=== PATIENT | female | born 1950 | race Caucasian/White ===

== ENCOUNTER 2023-12-10 05:25 | Inpatient (IN) | payer MEDICARE, OTHER, SELFPAY ==
[2023-12-10] VITALS (37 sets, daily range): BP systolic 99–155; BP diastolic 60–96; BMI 23.0
[2023-12-10] MEDS: PROTONIX IV 80 MG IV (03:06)
[2023-12-10 03:21] LABS: % Eosinophils 1.9 % (0-6); % Immature Granulocytes 0.4 % (0-0.5); % Neutrophils 50.7 % (42.2-75.2); Absolute Basophils 0.1 10^3/uL (0-0.2); Absolute Eosinophils 0.2 10^3/uL (0-0.7); Absolute Lymphocytes 3.1 10^3/uL (1.2-3.4); Absolute Monocytes 0.6 10^3/uL (0.1-0.6); Absolute Neutrophils 4.1 10^3/uL (1.4-6.5); Hematocrit 34.5 % (37.0-47.0); Hemoglobin 11.7 g/dL (12.0-16.0); Mean Corp Hgb Conc. 33.9 g/dL (33.0-37.0); Mean Corpuscular Hgb 36.2 pg (27.0-31.0); Mean Corpuscular Volume 106.8 fL (81.0-99.0); Mean Platelet Volume 10.6 fL (7.4-10.4); Nucleated Red Blood Cells % 0 %; Platelet Count 532 10^3/uL (130-400); Red Blood Cell Count 3.23 10^6/uL (4.20-5.40)
[2023-12-10 03:31] LABS: PT 13.2 Sec (11.4-14.6)
[2023-12-10 03:32] LABS: APTT 31.3 Sec (23.4-35.0)
--- NOTE | 2023-12-10 03:39 | ED.GENMED ---
History of Present Illness
General
Chief Complaint: Rectal Bleeding
Source: patient
Exam Limitations: none
Time Seen by Provider: 12/10/23 02:51
Nursing documentation reviewed up to this point in time: agreed with
Travel History
Have you had any contact with someone who has COVID-19?: No
Do you have any symptoms of coronavirus? Fever > 100 degrees, chills, cough, shortness of breath, sore throat, loss of taste or smell, muscle aches, or headache?: No
History of Present Illness
History of Present Illness:
This a pleasant 73-year-old female that presents with lower abdominal cramping. She states that this is been present for the last few days. Tonight she felt that she had to have a bowel movement in the middle of the night and went to wipe and had
a large amount of bright red blood. Patient states that she feels lightheaded and her states that she feels pale. She did have a colonoscopy on October 14 but no symptoms until tonight. Denies fever, chills, nausea and vomiting. While in
the emergency department, patient had 3 bowel movements of bright red blood.
Vital signs are stable. Patient not hypoxic
Nursing note reviewed. I agree with nursing documentation up to this point in time.
Home Meds and allergies reviewed.
NUMBER AND COMPLEXITY OF PROBLEMS ADDRESSED AT THE ENCOUNTER
� Chronic conditions affecting care: Thrombocytosis
� Acute Exacerbation and/or Progression of Chronic Illness:
� Differential Diagnosis includes:
AMOUNT AND/OR COMPLEXITY OF DATA TO BE REVIEWED AND ANALYZED
I performed an independent evaluation of the following and my interpretation is:
EKG:
CT:
X-rays:
Ultrasound:
Laboratory Studies: Initial hemoglobin is 11.7, platelet count is 532
Other:
Review of other/old records:
Clinical information was obtained by an independent historian:
Prescriptions/Medications Considered but not given:
Further testing considered but not performed:
RISK OF COMPLICATIONS AND/OR MORBIDITY OR MORTALITY OF PATIENT MANAGEMENT
Social determinants of health affecting care: Good Social Support, works as a nurse practitioner
Discussion with other providers:
Escalation of care including admission/observation vs risk of discharge considered:
CRITICAL CARE NOTE:
Total Time (exclusive of procedures):
Update:
Review of Systems
Review of Systems
Allergies reviewed?: Yes
All Other Systems: ROS reviewed and negative except as documented in HPI and ROS
Constitutional: Reports no symptoms
EENT: Reports no symptoms
Respiratory: Reports no symptoms
Cardiac: Reports no symptoms
ABD/GI: Reports abdominal pain, diarrhea and bloody stools
: Reports no symptoms
Musculoskeletal: Reports no symptoms
Skin: Reports no symptoms
Neurological: Reports no symptoms
Endocrine: Reports no symptoms
Hematologic/Lymphatic: Reports no symptoms
Psychiatric: Reports no symptoms
Phy Exam
General Physical Exam
General Presentation: mild distress
General age: appears stated age
General Skin: warm, dry and pale
General Habitus: normal
General Mental: alert
General Hydration: appears well hydrated
ENT Exam
ENT Exam: EOMI, pharynx normal, neck supple and normocephalic
Eye Exam
Eye Exam: PERRL, cornea clear and conjunctiva normal
Cardiovascular Exam
Cardiovascular Exam: no edema, normal peripheral pulses and tachycardia
Pulmonary Exam
Pulmonary Exam: lungs clear, no respiratory distress, no rales, no crackles, no rhonchi, no stridor, no wheezing and no cough
Gastrointestinal Exam
Gastrointestinal Exam: normal bowel sounds, non tender, soft, no organomegaly, no pulsatile mass and non distended
Neurological Exam
Neurological Exam: alert, oriented x3, no motor deficits and speech normal
Musculoskeletal Exam
Musculoskeletal Exam: full ROM and no edema
Skin Exam
Skin Exam: pallor
Psychiatric Exam
Psychiatric Exam: normal mood/affect
Course
Orders/Labs/Results
Orders:
Orders
12/10/23 03:04
IV Insert/Care/Rem.- Treatment PRN
Pantoprazole [Protonix IV] 80 mg IV NOW STA
12/10/23 03:06
Complete Blood Count/With Diff Urgent
Comprehensive Metabolic Panel Urgent
Lipase Urgent
PTT Urgent
Prothrombin Time Urgent
12/10/23 03:41
IV Insert/Care/Rem.- Treatment PRN
Complete Blood Count/No Diff Urgent
Pantoprazole 80 mg/100 ml Nss [Protonix] 80 mg in 100 ml IV NOW
12/10/23 03:55
Type+Screen Urgent
BBK Wristband Number:
12/10/23 04:00
0.9% Sodium Chloride 1000 ml [Nss] 1,000 ml IV 500 mls/hr
12/10/23 04:51
Admit/Transfer Patient As Directed
Co-Sign Provider:
Level of Care: Inpatient admission
Assign to:: IMU- Intermediate Care
Physician / Group: Aaron
Diagnosis: Lower GI Bleed
Reason for Hospitalization: Lower GI Bleed
Expected length of stay greater than two midnights?: Yes
ELOS- Estimated Length of Stay in days: 3
I certify the patient meets the requirements for IP care: Yes
12/10/23 04:52
Code Status As Directed
Resuscitation Status: Full Code
12/10/23 04:54
0.9% Sodium Chloride 500 ml [Nss] 500 ml IV BOLUS
Abnormal Lab Results
12/10/23 12/10/23
03:06 03:41
RBC 3.23 L 10^6/uL 3.15 L 10^6/uL
(4.20-5.40) (4.20-5.40)
Hgb 11.7 L g/dL 11.2 L g/dL
(12.0-16.0) (12.0-16.0)
Hct 34.5 L % 33.8 L %
(37.0-47.0) (37.0-47.0)
MCV 106.8 H fL 107.3 H fL
(81.0-99.0) (81.0-99.0)
MCH 36.2 H pg 35.6 H pg
(27.0-31.0) (27.0-31.0)
Plt Count 532 H 10^3/uL 461 H 10^3/uL
(130-400) (130-400)
MPV 10.6 H fL 10.5 H fL
(7.4-10.4) (7.4-10.4)
BUN 24 H mg/dl
(7-17)
Glucose 126 H mg/dl
(70-99)
Total Protein 6.1 L g/dl
(6.3-8.2)
12/10/23 03:41
12/10/23 03:06
Vital Signs
Initial and Last Documented VS:
Initial Vital Signs
Temp Pulse Resp BP Pulse Ox
97.5 F 131 21 126/78 100
12/10/23 02:45 12/10/23 02:45 12/10/23 02:45 12/10/23 02:45 12/10/23 02:45
Last Documented Vital Signs
Temp Pulse Resp BP Pulse Ox
97.5 F 93 24 107/60 96
12/10/23 02:45 12/10/23 05:15 12/10/23 05:15 12/10/23 05:00 12/10/23 05:15
*Critical Care Note
Total Time (30-74mins, 75-104mins- exclusive of procedures): Not Applicable
Update Note
Update Note:
12/10/2023 0342 AM: Blood consent signed by patient, witnessed by , and is on the chart
ED Attending Note
-
Portions of this chart may have been created with voice recognition software.� Occasional wrong word or��sound alike� substitutions may have occurred due to the inherent limitations of voice recognition software.
Discharge Plan
Departure
Patient Disposition: Admit
Date of Disposition: 12/10/23
Time of Disposition: 04:07
Admit to: Telemetry
Presentation/result/management discussed w/ accepting MD/DO: Hospitalist
Condition: Good
Discharge Problem:
Acute GI bleeding
Interventions
Interventions:
*Risk Screen - Suicide Last Done: 12/10/23 02:45
*General Assessment Last Done: 12/10/23 02:45
*Neglect/Abuse Screening Last Done: 12/10/23 02:45
ED- Fall Risk Assessment Last Done: 12/10/23 02:45
*ED COVID-19 Vaccine History Last Done: 12/10/23 02:45
FQ-Damyvh-Bihcejminq Assessment Last Done: 12/10/23 03:00
ED- Cardiac Assessment Last Done: 12/10/23 03:00
ED- Pulmonary Assessment Last Done: 12/10/23 03:00
[2023-12-10 03:44] LABS: ALT (SGPT) 16 U/L (0-35); AST (SGOT) 22 U/L (14-36); Albumin 3.5 g/dl (3.5-5.0); Alkaline Phosphatase 102 U/L (38-126); Blood Urea Nitrogen 24 mg/dl (7-17); Calcium 9.1 mg/dl (8.4-10.2); Carbon Dioxide 23 mmol/L (22-30); Chloride 105 mmol/L (98-107); Glucose 126 mg/dl (70-99); Lipase 79 U/L (23-300); Potassium 4.3 mmol/L (3.5-5.1); Sodium 136 mmol/L (135-145); Total Bilirubin 0.3 mg/dl (0.2-1.3); Total Protein 6.1 g/dl (6.3-8.2); eGFR 59.49
[2023-12-10 03:50] LABS: Hematocrit 33.8 % (37.0-47.0); Hemoglobin 11.2 g/dL (12.0-16.0); Mean Corp Hgb Conc. 33.1 g/dL (33.0-37.0); Mean Corpuscular Hgb 35.6 pg (27.0-31.0); Mean Corpuscular Volume 107.3 fL (81.0-99.0); Mean Platelet Volume 10.5 fL (7.4-10.4); Platelet Count 461 10^3/uL (130-400); Red Blood Cell Count 3.15 10^6/uL (4.20-5.40)
[2023-12-10] MEDS: PROTONIX 100 IV (03:56)
[2023-12-10] MEDS: NSS 1000 IV ×3 (04:12→23:05)
--- NOTE | 2023-12-10 04:55 | HPS.HSE ---
Family Physician
-
Family Physician: Dionte Vargas
Chief Complaint
-
Rectal Bleeding
History of Present Illness
Patient is a 73y F with PMH significant for essential thrombocytosis who presents to ED complaining of rectal bleeding. Patient states that she developed some crampy lower abdominal discomfort on Wednesday / Wednesday of this week. Her symptoms
resolved without specific intervention. She had no diarrhea, black / bloody stools, lightheadedness or dizziness. This evening before bed, she felt somewhat warm and was 'a little sweaty'. She went to sleep and woke around 2:30 AM with the urge
to move her bowels. There was some wetness in the bed and patient noted that this was red / grossly bloody. She went to the bathroom and had what she initially thought was diarrhea - this too was bright red blood with minimal amount of brown stool.
Patient presented to the ED for further evaluation. Since arrival here, she has had 3-4 additional episodes of gelatinous appearing / red stool.
Patient states that she has no chest pain, dyspnea or abdominal pain at present. She did feel somewhat lightheaded on her last trip to the bathroom.
Patient denies any prior history of GI beeding issues.
She had EGD and colonoscopy done 10/14/2023 and has those reports with her.
EGD showed small hiatal hernia and was otherwise unremarkable.
Colonoscopy showed diverticulosis (patient states that the physician told her there were quite a lot) and internal hemorrhoids.
Medical History
Past Medical History
Past Medical History: Reports Other
Additional Past Medical History:
Essential Thrombocytosis
Dyslipidemia
Hiatal Hernia / GERD
Past Surgical History: Reports None
Social History
Tobacco: Non-smoker
Alcohol: Occasional
Drug: None
Personal:
Living: With Family
Family History
Family History: Other (Father: Colon Cancer Mother: Breast Cancer)
Allergies / Home Medications
Allergies reflects when Allergies were last updated in [facility].
Home Medications with original date entered in [facility]
Allergy/Medication List:
Allergies
Allergy/AdvReac Type Severity Reaction Status Date / Time
No Known Allergies Allergy Unverified 12/10/23 02:44
Home Medications
aspirin 81 mg tablet 81 mg PO DAILY 12/10/23
hydroxyurea 500 mg capsule (Hydrea) 500 mg PO DAILY 12/10/23
omeprazole magnesium 20 mg tablet,delayed release (Prilosec OTC) 20 mg PO DAILY 12/10/23
rosuvastatin 10 mg tablet (Crestor) 10 mg PO DAILY 12/10/23
Review of Systems
-
History Source: Patient
A 12 point ROS was completed and negative except as noted: Yes
Constitutional: Reports Fatigue; Denies Fever or Chills
Respiratory: Denies Cough or Trouble Breathing
Cardiac: Denies Chest Pain or Palpitations
Abdomen/GI: Reports Bloody Stools; Denies Abdominal Pain, Nausea or Vomiting
: Denies Dysuria, Frequency or Flank Pain
Musculoskeletal: Denies Edema
Neurological: Reports Dizzy; Denies Headache
Psych: Reports Anxiety; Denies Depression
Physical Exam
Vital Signs
Vital Signs
Temp Pulse Resp BP Pulse Ox
97.5 F 91 13 99/62 99
12/10/23 02:45 12/10/23 04:30 12/10/23 04:30 12/10/23 04:01 12/10/23 04:30
Physical Exam
General: Other (73y F in no acute distress.)
HEENT: Moist mucous membranes and PERRLA
Respiratory: Clear; No Wheezes, Rales or Rhonchi
Cardiac: S1/S2 and Regular Rhythm; No Murmur
GI: Soft, Non Tender, Non Distended and Normal Bowel Sounds
Musculoskeletal: No Clubbing, No Cyanosis and No Edema
Neuro: AO x 3
Laboratory Results
-
12/10/23 03:41
12/10/23 03:06
Laboratory Results
PT 13.2 Sec (11.4-14.6) 12/10/23 03:06
INR 1.00 12/10/23 03:06
APTT 31.3 Sec (23.4-35.0) 12/10/23 03:06
Total Bilirubin 0.3 mg/dl (0.2-1.3) 12/10/23 03:06
AST 22 U/L (14-36) 12/10/23 03:06
ALT 16 U/L (0-35) 12/10/23 03:06
Alkaline Phosphatase 102 U/L (38-126) 12/10/23 03:06
Lipase 79 U/L (23-300) 12/10/23 03:06
Impression/Plan
-
A/P: Patient is a 73y F with PMH significant for essential thrombocytosis who presents to ED for evaluation of rectal bleeding.
Lower GI Bleeding
Acute Blood Loss Anemia secondary to the above
- Admit to IMU for further evaluation and treatment.
- Follow H&H and consider transfusion if Hgb < 7, worsening symptoms or ongoing blood loss.
- ? diverticular bleeding, internal hemorrhoids, etc. Colitis (infectious or ischemic) seems less likely with lack of pain, fever, etc.
- If patient has additional episodes of BRBPR, would check CTA to see if bleeding can be localized. +/- IR evaluation / intervention.
- GI evaluation in the AM.
- ? repeat colonoscopy - especially if bleeding does not fully resolve.
- Follow for any new / worsening symptoms.
- Continue supportive care, IVFs, etc.
- Hold ASA acutely.
Essential Thrombocytosis
- Stable. Platelet count typically in the mid-300's per patient.
- Hold PO meds including hydroxyurea for now.
- Follow for changes in cell counts.
Hiatal Hernia / GERD
- Stable. No upper GI symptoms, melena, etc.
- Continue PPI daily.
Dyslipidemia
- Stable. Hold statin for now. May resume upon discharge.
DVT Prophylaxis: SCDs
Code Status: Full
[2023-12-10] MEDS: NSS 500 IV (05:38)
--- NOTE | 2023-12-10 06:35 | PTCARENOTE ---
12/10/23 - received pt from ER at 0615, patient axo and very pleasant. no pain or discomfort at this time, per patient she had 5/6 loose stool in ED and does not feel the urge to go anymore at this time. patient however asked to have bedpan by bed
as she can use it herself.
patient has cell phone by her side and purse in closet, no futher needs at this tme, will review orders to see if she is NPO, protonix and NSS running.
--- NOTE | 2023-12-10 06:40 | CON.GI ---
Addendum entered and electronically signed by Jeff Grady MD 12/10/23 15:33:
I saw and examined the patient.
The PA's note was reviewed and I agree with the note.
Comment:
Pt is a 73 year old female with h/o essential thrombocytopenia on Hydrea, dyslipidemia, GERD and HH p/w hematochezia. She had crampy abdominal pain 4-5 days ago which eased but recurred after few days, followed by hematochezia. On arrival in ER
noted with multiple gelatinous stools and further bleeding with passing bright red blood during evaluation. Had EGD and colonoscopy on 10/2023, EGD showed HH and colonoscopy showed diverticulosis and internal hemorrhoids.� On admission hbg 11.7 with
macrocytosis, platelets 532, BUN 24.
Impression / Rec:
1. Abdominal cramps/pain and hematochezia - atypical. Abdo cramps followed by rectal bleeding is suggestive of ischemic colitis, however her hematochezia didn't occur for 2-3 days after her pain which makes this less likely. CTA was done which
was -ve for active bleeding (not surprising), but it also showed findings suggestive of diverticulitis in distal descending colon. ? diverticulitis with diverticular hemorrhage? Remains unclear. Would defer endo eval at this time. Can narrow
down abx to cipro/flagyl for diverticulitis. Follow Hgb.
Addendum entered and electronically signed by JACKIE Daly 12/10/23 11:07:
12/09 CTA with no active bleeding, mild acute diverticulitis, gastritis not excluded hbg 9.[address] Liang no role for angio, add abx with noted diverticulitis and for transfusion - Dr. Liang to review with patient
Original Note:
Consultation
-
Date/Time Consultation Requested: 12/10/23629
Date/Time Consultation Performed: 12/10/23814
Requesting Provider: Jama Walker DO
Performing Provider: JACKIE Short, Jeff Grady MD
Reason for Consultation: GI bleed
Medical History
Chief Complaint / HPI
Chief Complaint: rectal bleeding
History of Present Illness:
Pt is 73yo with hx essential thrombocytopenia on hydrea , dyslipidemia, GERD and HH with onset of crampy abdominal pain on Wednesday and Wednesday then resolved. She developed sweaty prior to bed 12/08 then awoke with urge for BM with noted red blood in
bed. On arrival in Er noted with multiple gelatinous stools and further bleeding with passing bright red blood during evaluation. Hx EGD and colon 10/2023 with EGD noted HH and colon with diverticulosis and internal hemorrhoids. On admission hbg
11.7 with macrocytosis, platelets 532, BUN 24.
Pt denies dysphagia, GERD, nausea, vomiting, abdominal pain, diarrhea, constipation or black stools. On daily ASA no other anticoagulation or NSAID use.
Past Medical History
Past Medical History: GERD, Hypercholesterolemia and Other (essential thrombocytosis, Hiatal hernia)
Social History
Tobacco: Non-Smoker
Alcohol: Occasional (social )
Drug: None
Personal:
Living: With Family
Employment: Retired
Family History
Family History: Other (father with colon CA, mother with breast CA)
Allergies / Home Medications
Allergy/AdvReac Type Severity Reaction Status Date / Time
No Known Allergies Allergy Unverified 12/10/23 02:44
Medication Instructions Recorded
aspirin 81 mg tablet 81 mg PO DAILY 12/10/23
hydroxyurea 500 mg capsule (Hydrea) 500 mg PO DAILY 12/10/23
omeprazole magnesium 20 mg 20 mg PO DAILY 12/10/23
tablet,delayed release (Prilosec
OTC)
rosuvastatin 10 mg tablet (Crestor) 10 mg PO DAILY 12/10/23
Review of Systems
-
History Source: Patient
Constitutional: Reports No Symptoms
EENT: Reports No Symptoms
Respiratory: Reports No Symptoms
Cardiac: Reports No Symptoms
Abdomen/GI: Reports Abdominal Pain (several days ago no resolved ) and Bloody Stools
: Reports No Symptoms
Musculoskeletal: Reports No Symptoms
Skin: Reports No Symptoms
Neurological: Reports Weakness
Endocrine: Reports No Symptoms
Hematologic/Lymphatic: Reports Bleeding
Vital Signs
Temp Pulse Resp BP Pulse Ox
97.5 F 93 24 107/60 96
12/10/23 02:45 12/10/23 05:15 12/10/23 05:15 12/10/23 05:00 12/10/23 05:15
Physical Exam
Exam
General: Well Developed, Well Nourished and No Apparent Distress
HEENT: Normocephalic and Anicteric
Respiratory: Clear
Cardiac: Regular Rhythm
GI: Soft, Non Tender and Non Distended
Rectal: Red (red blood in toilet with recent stool)
Musculoskeletal: No Clubbing and No Cyanosis
Skin: Warm and Dry
Neuro: Awake, Alert and AO x 3
Psych: Calm
Results
WBC 7.0 10^3/uL (4.8-10.8) 12/10/23 03:41
Hgb 11.2 g/dL (12.0-16.0) L 12/10/23 03:41
Hct 33.8 % (37.0-47.0) L 12/10/23 03:41
MCV 107.3 fL (81.0-99.0) H 12/10/23 03:41
Plt Count 461 10^3/uL (130-400) H 12/10/23 03:41
Absolute Neuts (auto) 4.1 10^3/uL (1.4-6.5) 12/10/23 03:06
PT 13.2 Sec (11.4-14.6) 12/10/23 03:06
INR 1.00 12/10/23 03:06
APTT 31.3 Sec (23.4-35.0) 12/10/23 03:06
Sodium 136 mmol/L (135-145) 12/10/23 03:06
Potassium 4.3 mmol/L (3.5-5.1) 12/10/23 03:06
Chloride 105 mmol/L (98-107) 12/10/23 03:06
Carbon Dioxide 23 mmol/L (22-30) 12/10/23 03:06
BUN 24 mg/dl (7-17) H 12/10/23 03:06
Creatinine 1.0 mg/dL (0.6-1.0) 12/10/23 03:06
Calcium 9.1 mg/dl (8.4-10.2) 12/10/23 03:06
Total Bilirubin 0.3 mg/dl (0.2-1.3) 12/10/23 03:06
AST 22 U/L (14-36) 12/10/23 03:06
ALT 16 U/L (0-35) 12/10/23 03:06
Alkaline Phosphatase 102 U/L (38-126) 12/10/23 03:06
Lipase 79 U/L (23-300) 12/10/23 03:06
Diagnostic Image Results:
12/09 CTA pending
Prior GI Procedures:
EGD: [facility] 10/14/23 noted HH normal stomach and duodenum no bx
Colonoscopy: [facility] 10/14/23 colon with diverticulosis descending and sigmoid , internal hemorrhoids.
Assessment / Plan
-
Pt is 73yo with hx essential thrombocytopenia on Hydrea , dyslipidemia, GERD and HH with onset of crampy abdominal pain on Wednesday and Wednesday then resolved. She developed sweaty prior to bed 12/08 then awoke with urge for BM with noted red blood in
bed. On arrival in Er noted with multiple gelatinous stools and further bleeding with passing bright red blood during evaluation. Hx EGD and colon 10/2023 with EGD noted HH and colon with diverticulosis and internal hemorrhoids. On admission hbg
11.7 with macrocytosis, platelets 532, BUN 24.
-lower GI bleed likely diverticular bleed
-hx diverticulosis on recent colonoscopy
-anemia acute blood loss
-thrombocytosis stable on chronic Hydrea
-HH
- hx GERD stable on OP Omeprazole OTC
-dyslipidemia
PLAN:Etiology of symptoms related to diverticular bleeding, vs less likely ischemic process with some hypotension on admission vs other
pt just passed another large volume stools will proceed with CTA if + then angio
if persistent bleeding and CTA neg consider colonoscopy
trend hbg and platelets with thrombocytosis
maintain adequate perfusion
NPO ok for sips and meds
cont Protonix 40mg IV daily
recent EGD/colon reviewed
discussed with Dr. Liang, and nursing staff
will follow
-
-
Thank you for consultation and allowing me to participate in the patient's care. Please call the production line mechanic GI physician during the after hours with any questions or concerns.
--- NOTE | 2023-12-10 07:49 | W.PN.HOSP.TC ---
Addendum entered and electronically signed by Anastasia Liang MD 12/10/23 12:58:
Pt's Hgb noted to have dropped from 11 to 9.3, likely due to GIB and hemodilution from IVF.
She would like to continue to monitor Hgb for now before receiving blood transfusion.
Noted iron deficiency, and low B12 level.
Pt prefers to hold off on iron supplement due to her h/o thrombocytosis.
Start B12 supplement.
Her CT AP Angio (obtained due to recurrent GI bleed) was negative for acute GI bleed. But noted mild acute diverticulitis of the distal descending colon.
She was started with empiric Zosyn for this.
Add probiotic while on Abx.
d/w at bedside
total time spent 53 min
Original Note:
Today's Communication/Plan
-
see A/P
Assessment / Plan
Assessment / Plan
Patient is a 73y F with PMH significant for essential thrombocytosis who presents to ED complaining of rectal bleeding.� Patient states that she developed some crampy lower abdominal discomfort on Wednesday / Wednesday of this week.� Her symptoms
resolved without specific intervention.� She had no diarrhea, black / bloody stools, lightheadedness or dizziness.� This evening before bed, she felt somewhat warm and was 'a little sweaty'.� She went to sleep and woke around 2:30 AM with the urge
to move her bowels.� There was some wetness in the bed and patient noted that this was red / grossly bloody.� She went to the bathroom and had what she initially thought was diarrhea - this too was bright red blood with minimal amount of brown stool.
Patient presented to the ED for further evaluation.� Since arrival here, she has had 3-4 additional episodes of gelatinous appearing / red stool.
Patient states that she has no chest pain, dyspnea or abdominal pain at present.� She did feel somewhat lightheaded on her last trip to the bathroom.
Patient denies any prior history of GI beeding issues.
She had EGD and colonoscopy done 10/14/2023 and has those reports with her.
EGD showed small hiatal hernia and was otherwise unremarkable.
Colonoscopy showed diverticulosis (patient states that the physician told her there were quite a lot) and internal hemorrhoids.
A/P:
# BRBPR / Lower GI Bleeding, suspect diverticular bleed
# Acute Blood Loss Anemia secondary to the above
Follow H&H and consider transfusion if Hgb < 7, worsening symptoms or ongoing blood loss.
Check iron studies, B12, folate levels
Recent C scope noted diverticulosis and internal hemorrhoids.
Monitor for further GIB, consider CTA of bleeding recurs
GI CS, defer ?repeat colonoscopy to GI
Continue supportive care, IVFs, etc.
# Essential Thrombocytosis- Stable.�
Platelet count typically in the mid-300's per patient.
Hold hydroxyurea for now.
Resume ASA (pt takes ASA for Thrombocytosis)
Follow for changes in cell counts.
# Hiatal Hernia / GERD�- Stable.�
No upper GI symptoms, melena, etc.
Continue PPI daily.
# Dyslipidemia�- Stable.�
Hold statin for now.� May resume upon discharge.
DVT Prophylaxis:� SCDs
Code Status:� Full
DW pt's PCP Dr Lux Vargas [phone]
DW GI
Anticipated Discharge: 24 - 48 hours
Subjective/Interval History
-
Date of Service: December 10, 2023
Objective Data
-
Labs:
Laboratory Results
12/10/23 12/10/23 12/10/23
03:06 03:41 06:30
WBC 8.0 7.0
Hgb 11.7 L 11.2 L Pending
Hct 34.5 L 33.8 L Pending
Plt Count 532 H 461 H
PT 13.2
INR 1.00
APTT 31.3
Sodium 136
Potassium 4.3
Chloride 105
Carbon Dioxide 23
BUN 24 H
Creatinine 1.0
Glucose 126 H
Calcium 9.1
Total Bilirubin 0.3
AST 22
ALT 16
Alkaline Phosphatase 102
12/10/23 12/10/23
12:30 18:30
WBC
Hgb Pending Pending
Hct Pending Pending
Plt Count
PT
INR
APTT
Sodium
Potassium
Chloride
Carbon Dioxide
BUN
Creatinine
Glucose
Calcium
Total Bilirubin
AST
ALT
Alkaline Phosphatase
Vital Signs:
Vital Signs
Temp Pulse Resp BP Pulse Ox
36.4 C 93 24 107/60 96
12/10/23 02:45 12/10/23 05:15 12/10/23 05:15 12/10/23 05:00 12/10/23 05:15
Review of Systems
-
Abdomen/GI: Reports Bloody Stools; Denies Abdominal Pain
Physical Exam
-
General: Well Developed, Well Nourished, No Apparent Distress, Comfortable and Conversant; Negative Respiratory Distress
HEENT: Normocephalic, Atraumatic, Nose Appears Normal and Ears Appear Normal; Negative Oxygen
Respiratory: Clear to Auscultation and Non Labored Respirations; Negative Accessory Resp Muscle Use
Cardiac: Regular Rhythm and S1/S2
GI: Soft, Nontender, Nondistended and Normal Bowel Sounds
Skin: Warm and Dry
Neuro: Awake, Alert, Oriented and AO x 3
Psych: Calm and Intact Judgement/Insight
Data Reviewed
-
Labs: Labs Reviewed by me
[2023-12-10] MEDS: NSS IV ×3 (09:10→11:22)
[2023-12-10 09:20] LABS: Ferritin 50.1 ng/ml (11.1-264.0)
[2023-12-10 09:28] LABS: Hematocrit 27.3 % (37.0-47.0); Hemoglobin 9.3 g/dL (12.0-16.0)
[2023-12-10 09:42] LABS: Iron 41 ug/dl (37-170)
[2023-12-10 09:52] LABS: Folate 4.8 ng/ml (2.76-20); Vitamin B12 353 pg/ml (239-931)
[2023-12-10 09:52] LABS: Percent Saturation 14 % (20-50); Total Iron Binding Capacity 276 ug/dl (265-497)
[2023-12-10] MEDS: ZOSYN 50 IV ×2 (11:27→18:12)
[2023-12-10 13:55] LABS: Hematocrit 25.1 % (37.0-47.0); Hemoglobin 8.5 g/dL (12.0-16.0)
--- NOTE | 2023-12-10 13:58 | CM ---
CM following re: discharge planning.
Discussed in rounds, reviewed pt's chart, met with pt.
Pt is a 73 year old female, admitted with primary dx of BRBPR / Lower GI Bleeding.
Pt reports she lives in a condo, 3d floor with elevator, no steps, has 2 supportive children. Pt described herself as independent in all areas [employer]. No DME, VN or SNF history.
PCP: Dionte mccann
Ph[facility]: [facility]
D/C plan: home with anticipated no needs. to transport at discharge.
CM will follow with discharge plan updates as hospitalization progresses
[2023-12-10] MEDS: HYDREA 500 MG PO (14:08)
[2023-12-10] MEDS: VISBIOME 1 CAP PO (14:08)
[2023-12-10] MEDS: VITAMIN B-12 1000 MCG PO (14:08)
[2023-12-10 18:29] LABS: Hematocrit 22.6 % (37.0-47.0); Hemoglobin 7.5 g/dL (12.0-16.0)
--- NOTE | 2023-12-10 19:40 | PTCARENOTE ---
Report received from off going RN. Patient received in bed, AAOx4 and able to make her needs known. denies pain. Complains of a mild headache. Plan of care for the shift reviewed with the patient. Blood transfusion protocol reviewed with the
patient. Pt states that she's never received a blood transfusion. Possible blood transfusion reactions reviewed with the patient. Questions encouraged. The patient is sinus rhythm on the monitor. Afebrile. Clear breath sounds throughout. SpO2 at 95%
on room air. +BS. Abdomen is soft and nontender. Patient encouraged to utilize the call callahan prior to getting OOB. PIV. Zosyn is ongoing. Normal saline at 100 ml/hr. Need for SCDs explained to the patient. Pt's agreeable to scds when she's ready for
bed. All needs met at this time.
--- NOTE | 2023-12-10 21:05 | PTCARENOTE ---
2058: 1 unit PrBC infusion
[2023-12-10] MEDS: TYLENOL 650 MG PO (21:20)
[2023-12-10] MEDS: ASPIR LOW (ENTERIC COATED) 81 MG PO (21:21)
[2023-12-10] MEDS: CRESTOR 10 MG PO (21:21)
--- NOTE | 2023-12-10 23:07 | PTCARENOTE ---
2303: 1 unit Prbc completed
[2023-12-11] VITALS (11 sets, daily range): BP systolic 86–136; BP diastolic 44–92; BMI 22.9
[2023-12-11] MEDS: ZOSYN 50 IV ×2 (00:02→05:39)
--- NOTE | 2023-12-11 00:25 | PTCARENOTE ---
Patient reassessed. AAOx4 and able to make her needs known. Remains VSS. Discussed SCD use with the patient. Pt's agreeable post zosyn administration. No changes from previous assessment.
[2023-12-11 00:54] LABS: Hematocrit 28.3 % (37.0-47.0)
[2023-12-11 00:58] LABS: Hemoglobin 9.6 g/dL (12.0-16.0)
[2023-12-11 04:09] LABS: Hematocrit 28.8 % (37.0-47.0); Hemoglobin 9.8 g/dL (12.0-16.0); Mean Corpuscular Hgb 35.4 pg (27.0-31.0); Mean Platelet Volume 10.4 fL (7.4-10.4); Platelet Count 364 10^3/uL (130-400); Red Blood Cell Count 2.77 10^6/uL (4.20-5.40); Red Cell Dist. Width 14.9 % (11.5-14.5); White Blood Cell Count 5.7 10^3/uL (4.8-10.8)
--- NOTE | 2023-12-11 04:25 | PTCARENOTE ---
Patient reassessed. PAtient ambulates to the bathroom. Gait is steady. Pt voids appropriately. The patient had 2 very small pea sized clots. no bloody stools. VSS. All needs are met at this time. SCDs in use. call callahan is within reach.
[2023-12-11 04:30] LABS: Blood Urea Nitrogen 14 mg/dl (7-17); Calcium 8.7 mg/dl (8.4-10.2); Carbon Dioxide 24 mmol/L (22-30); Chloride 111 mmol/L (98-107); Estimated Creatinine Clearance 78 ml/min; Glucose 89 mg/dl (70-99); Potassium 4.3 mmol/L (3.5-5.1); Sodium 136 mmol/L (135-145); eGFR > 60.00
[2023-12-11] MEDS: NSS 1000 IV (07:48)
--- NOTE | 2023-12-11 08:00 | PTCARENOTE ---
Assumed care of patient at 0645. Assessment completed and documented in shift assessment.
Patient is AAOX3, pleasant and cooperative. Ambulates to bathroom independently. Expressed discomfort in mid-back likely d/t bed. Gave Tylenol for discomfort.
[2023-12-11] MEDS: HYDREA 500 MG PO (08:10)
[2023-12-11] MEDS: VISBIOME 1 CAP PO (08:10)
[2023-12-11] MEDS: VITAMIN B-12 1000 MCG PO (08:10)
[2023-12-11] MEDS: PROTONIX IV 40 MG IV (08:10)
[2023-12-11] MEDS: NSS (PRESERVATIVE FREE) 10 ML IV (08:11)
[2023-12-11] MEDS: TYLENOL 650 MG PO (08:25)
--- NOTE | 2023-12-11 08:30 | W.PN.HOSP.TC ---
Today's Communication/Plan
-
see A/P
Assessment / Plan
Assessment / Plan
Patient is a 73y F with PMH significant for essential thrombocytosis who presents to ED complaining of rectal bleeding.� Patient states that she developed some crampy lower abdominal discomfort on Wednesday / Wednesday of this week.� Her symptoms
resolved without specific intervention.� She had no diarrhea, black / bloody stools, lightheadedness or dizziness.� This evening before bed, she felt somewhat warm and was 'a little sweaty'.� She went to sleep and woke around 2:30 AM with the urge
to move her bowels.� There was some wetness in the bed and patient noted that this was red / grossly bloody.� She went to the bathroom and had what she initially thought was diarrhea - this too was bright red blood with minimal amount of brown stool.
Patient presented to the ED for further evaluation.� Since arrival here, she has had 3-4 additional episodes of gelatinous appearing / red stool.
Patient states that she has no chest pain, dyspnea or abdominal pain at present.� She did feel somewhat lightheaded on her last trip to the bathroom.
Patient denies any prior history of GI beeding issues.
She had EGD and colonoscopy done 10/14/2023 and has those reports with her.
EGD showed small hiatal hernia and was otherwise unremarkable.
Colonoscopy showed diverticulosis (patient states that the physician told her there were quite a lot) and internal hemorrhoids.
A/P:
# BRBPR / Lower GI Bleeding, suspect diverticular bleed vs atypical ischemic colitis vs mild diverticulitis
# Acute Blood Loss Anemia secondary to the above
Recent C scope noted diverticulosis and internal hemorrhoids.
CTA was -ve for active bleeding
Hgb today 9.7 after 1 unit PRBC, lowest was at 7.5
Iron studies with PRADIP, however pt declined iron supplement due to her diagnosis of Essential Thrombocytosis
Low B12 level, started B12 supplement
Started Zosyn for mild diverticulitis noted on CT, narrow to Levaquin/flagyl, cont probiotics
GI on board, defer endoscopy at this time.
ADAT to low residue today
# Essential Thrombocytosis- Stable.�
Platelet count typically in the mid-300's per patient.
Cont [place] hydroxyurea and ASA
Follow for changes in cell counts.
# Hiatal Hernia / GERD�- Stable.�
No upper GI symptoms, melena, etc.
Continue PPI daily.
# Dyslipidemia�- Stable.�
Hold statin for now.�May resume upon discharge.
DVT Prophylaxis:� SCDs
Code Status:� Full
Anticipated Discharge: Within 24 hours
Subjective/Interval History
-
Date of Service: December 11, 2023
Objective Data
-
Labs:
Laboratory Results
12/11/23 12/11/23
00:50 04:01
WBC 5.7
Hgb 9.6 L D 9.8 L
Hct 28.3 L 28.8 L
Plt Count 364 D
Sodium 136
Potassium 4.3
Chloride 111 H
Carbon Dioxide 24
BUN 14
Creatinine 0.6
Glucose 89
Calcium 8.7
Vital Signs:
Vital Signs
Temp Pulse Resp BP Pulse Ox
36.9 C 74 11 125/63 99
12/11/23 07:52 12/11/23 07:15 12/11/23 07:15 12/11/23 06:00 12/11/23 07:15
I&O
12/10/23 12/11/23 12/12/23
06:59 06:59 07:59
Intake Total 1600 / 1700 200 / 200
Balance 1600 / 1700 200 / 200
Review of Systems
-
Abdomen/GI: Denies Abdominal Pain or Bloody Stools (much resolved )
Physical Exam
-
General: Well Developed, Well Nourished, No Apparent Distress, Comfortable and Conversant; Negative Respiratory Distress
HEENT: Normocephalic, Atraumatic, Nose Appears Normal and Ears Appear Normal; Negative Oxygen
Respiratory: Clear to Auscultation and Non Labored Respirations; Negative Accessory Resp Muscle Use
Cardiac: Regular Rhythm and S1/S2
GI: Soft, Nontender, Nondistended and Normal Bowel Sounds
Skin: Warm and Dry
Neuro: Awake, Alert, Oriented and AO x 3
Psych: Calm and Intact Judgement/Insight
Data Reviewed
-
CT Scan: Report Reviewed by me and Discussed with Patient
Labs: Labs Reviewed by me
[2023-12-11] MEDS: LEVAQUIN 150 IV (10:48)
[2023-12-11] MEDS: FLAGYL 500 MG 100 IV ×2 (10:48→17:33)
--- NOTE | 2023-12-11 10:56 | CM ---
CM following re: discharge planning.
Reviewed pt's chart, met with pt and pt's spouse at bedside.
pt stated she is aware she will be potentially discharged home tomorrow and pt expressed her agreement. IMM reviewed, placed in chart, pt has a copy.
Pt stated she will not need any after care VN services upon the discharge and her will transport home.
D/C plan: home with no needs. to transport at discharge.
--- NOTE | 2023-12-11 11:10 | W.PN.GI.CBS2 ---
Today's Communication / Plan
-
ok with advancing diet, GI s/o
Assessment / Plan
-
Pt is a 73 year old female with h/o essential thrombocytopenia on Hydrea, dyslipidemia, GERD and HH p/w hematochezia.� She had crampy abdominal pain 4-5 days ago which eased but recurred after few days, followed by hematochezia.� On arrival in ER
noted with multiple gelatinous stools and further bleeding with passing bright red blood during evaluation.� Had EGD and colonoscopy on 10/2023, EGD showed HH and colonoscopy showed diverticulosis and internal hemorrhoids.� On admission hbg 11.7 with
macrocytosis, platelets 532, BUN 24. Abdo cramps followed by rectal bleeding is suggestive of ischemic colitis, however her hematochezia didn't occur for 2-3 days after her pain which makes this less likely.� CTA was done which was -ve for active
bleeding (not surprising), but it also showed findings suggestive of diverticulitis in distal descending colon.� ? diverticulitis with diverticular hemorrhage?� Remains unclear.�
Had 1 BM o/n, which was mostly stool with streaks of maroon blood, which is likely residual blood. Otherwise no further hematochezia. Hgb 9.7 today after 1 unit of pRBC. Suspect diverticular hemorrhage which has stopped. Agree with advancing
diet to low residue. GI will s/o at this point, call with questions.
Total Time Spent with Patient (in minutes): 35
Subjective
Subjective
Date of Service: December 11, 2023
Had 1 BM o/n, which was mostly stool with streak of maroon blood.
Objective
Data Reviewed
Laboratory Data:
Laboratory Results
12/11/23 04:01
12/11/23 04:01
Laboratory Results
PT 13.2 Sec (11.4-14.6) 12/10/23 03:06
INR 1.00 12/10/23 03:06
APTT 31.3 Sec (23.4-35.0) 12/10/23 03:06
Total Bilirubin 0.3 mg/dl (0.2-1.3) 12/10/23 03:06
AST 22 U/L (14-36) 12/10/23 03:06
ALT 16 U/L (0-35) 12/10/23 03:06
Alkaline Phosphatase 102 U/L (38-126) 12/10/23 03:06
Lipase 79 U/L (23-300) 12/10/23 03:06
Vital Signs and I&O:
Vital Signs
Temp Pulse Resp BP Pulse Ox
98.5 F 78 15 122/60 99
12/11/23 07:52 12/11/23 10:15 12/11/23 10:15 12/11/23 08:00 12/11/23 10:15
I&O
12/10/23 12/11/23 12/12/23
06:59 06:59 07:59
Intake Total 1600 / 1700 300 / 300
Balance 1600 / 1700 300 / 300
[2023-12-11 16:51] LABS: Hemoglobin 9.6 g/dL (12.0-16.0)
--- NOTE | 2023-12-11 19:46 | PTCARENOTE ---
Received patient in bed AAOx4 and able to make her needs known. Denies pain at this time. MAEx4. Plan of care for the shift reviewed with the patient. NSR on the monitor. Right forearm 20 g is patent w/o blood return. Breath sounds are clear
throughout. SpO2 at 97% on room air. Abdomen is soft and nontender. +bowel sounds. The patient is independent in the room. Bed in the lowest position. Call callahan and personal belongings are within reach.
[2023-12-11] MEDS: ASPIR LOW (ENTERIC COATED) 81 MG PO (21:46)
[2023-12-11] MEDS: CRESTOR 10 MG PO (21:46)
[2023-12-12 00:38] VITALS: BP 133/71
--- NOTE | 2023-12-12 00:46 | PTCARENOTE ---
Patient reassessed, unable to sleep. Pt declines needing anything at the moment. VSS and afebrile. The patient is independent in the room. All needs are met at this time. Safety measures remain in place. Call callahan is within reach.
[2023-12-12] MEDS: FLAGYL 500 MG 100 IV (01:07)
[2023-12-12] MEDS: TYLENOL 650 MG PO (01:08)
--- NOTE | 2023-12-12 01:16 | PTCARENOTE ---
Assume care from previous RN. LAURA, KATIAo3. pleasant. NSR in the monitor. Lung, GI, WNL. No bleeding noted. pt appears comfortable in bed and call callahan within reach.
[2023-12-12 03:00] VITALS: BP 124/71
[2023-12-12 04:00] VITALS: BP 115/64
[2023-12-12 05:58] LABS: Hemoglobin 9.8 g/dL (12.0-16.0); Mean Corp Hgb Conc. 33.8 g/dL (33.0-37.0); Mean Corpuscular Hgb 35.4 pg (27.0-31.0); Mean Corpuscular Volume 104.7 fL (81.0-99.0); Mean Platelet Volume 10.4 fL (7.4-10.4); Platelet Count 415 10^3/uL (130-400); Red Blood Cell Count 2.77 10^6/uL (4.20-5.40); Red Cell Dist. Width 14.7 % (11.5-14.5); White Blood Cell Count 5.8 10^3/uL (4.8-10.8)
[2023-12-12 06:00] VITALS: BP 110/61
[2023-12-12 06:20] LABS: Blood Urea Nitrogen 10 mg/dl (7-17); Calcium 9.2 mg/dl (8.4-10.2); Carbon Dioxide 27 mmol/L (22-30); Chloride 105 mmol/L (98-107); Estimated Creatinine Clearance 78 ml/min; Glucose 93 mg/dl (70-99); Potassium 3.7 mmol/L (3.5-5.1); Sodium 138 mmol/L (135-145); eGFR > 60.00
[2023-12-12 08:00] VITALS: BP 118/75
--- NOTE | 2023-12-12 08:02 | W.PN.HOSP.TC ---
Addendum entered and electronically signed by Anastasia Liang MD 12/12/23 14:42:
total DC time 35 min
Original Note:
Today's Communication/Plan
-
DC home today
Assessment / Plan
Assessment / Plan
Patient is a 73y F with PMH significant for essential thrombocytosis who presents to ED complaining of rectal bleeding.� Patient states that she developed some crampy lower abdominal discomfort on Wednesday / Wednesday of this week.� Her symptoms
resolved without specific intervention.� She had no diarrhea, black / bloody stools, lightheadedness or dizziness.� This evening before bed, she felt somewhat warm and was 'a little sweaty'.� She went to sleep and woke around 2:30 AM with the urge
to move her bowels.� There was some wetness in the bed and patient noted that this was red / grossly bloody.� She went to the bathroom and had what she initially thought was diarrhea - this too was bright red blood with minimal amount of brown stool.
Patient presented to the ED for further evaluation.� Since arrival here, she has had 3-4 additional episodes of gelatinous appearing / red stool.
Patient states that she has no chest pain, dyspnea or abdominal pain at present.� She did feel somewhat lightheaded on her last trip to the bathroom.
Patient denies any prior history of GI beeding issues.
She had EGD and colonoscopy done 10/14/2023 and has those reports with her.
EGD showed small hiatal hernia and was otherwise unremarkable.
Colonoscopy showed diverticulosis (patient states that the physician told her there were quite a lot) and internal hemorrhoids.
A/P:
# BRBPR / Lower GI Bleeding, suspect diverticular bleed vs atypical ischemic colitis vs mild diverticulitis
# Acute Blood Loss Anemia secondary to the above
Recent C scope noted diverticulosis and internal hemorrhoids.
CTA was -ve for active bleeding
Hgb today at 9.8, s/p 1 unit PRBC transfusion, lowest was at 7.5
Iron studies with PRADIP, however pt declined iron supplement due to her diagnosis of Essential Thrombocytosis
Low B12 level, started B12 supplement
Started Zosyn for mild diverticulitis noted on CT, narrow to Levaquin/Flagyl, cont probiotics
GI on board, defer endoscopy at this time.
ADAT to low residue and tolerated well
# Essential Thrombocytosis- Stable.�
Platelet count typically in the mid-300's per patient.
Cont PATENT [employer] hydroxyurea and ASA
Follow for changes in cell counts.
# Hiatal Hernia / GERD�- Stable.�
No upper GI symptoms, melena, etc.
Continue PPI daily.
# Dyslipidemia�- Stable.�
Hold statin for now.�May resume upon discharge.
DVT Prophylaxis:� SCDs
Code Status:� Full
Anticipated Discharge: Today
Subjective/Interval History
-
Date of Service: December 12, 2023
Objective Data
-
Labs:
Laboratory Results
12/12/23
05:38
WBC 5.8
Hgb 9.8 L
Hct 29.0 L
Plt Count 415 H
Sodium 138
Potassium 3.7
Chloride 105
Carbon Dioxide 27
BUN 10
Creatinine 0.6
Glucose 93
Calcium 9.2
Vital Signs:
Vital Signs
Temp Pulse Resp BP Pulse Ox
36.8 C 75 18 110/61 97
12/12/23 07:40 12/12/23 06:00 12/12/23 06:00 12/12/23 06:00 12/11/23 19:30
I&O
12/11/23 12/12/23 12/13/23
05:59 06:59 06:59
Intake Total
Balance
Review of Systems
-
Abdomen/GI: Reports Other (now just streaked of blood on stool); Denies Abdominal Pain or Bloody Stools (much resolved )
Physical Exam
-
General: Well Developed, Well Nourished, No Apparent Distress, Comfortable and Conversant; Negative Respiratory Distress
HEENT: Normocephalic, Atraumatic, Nose Appears Normal and Ears Appear Normal; Negative Oxygen
Respiratory: Clear to Auscultation and Non Labored Respirations; Negative Accessory Resp Muscle Use
Cardiac: Regular Rhythm and S1/S2
GI: Soft, Nontender, Nondistended and Normal Bowel Sounds
Skin: Warm and Dry
Neuro: Awake, Alert, Oriented and AO x 3
Psych: Calm and Intact Judgement/Insight
Data Reviewed
-
CT Scan: Report Reviewed by me and Discussed with Patient
Labs: Labs Reviewed by me
[2023-12-12] MEDS: HYDREA 500 MG PO (08:39)
[2023-12-12] MEDS: VISBIOME 1 CAP PO (08:39)
[2023-12-12] MEDS: PROTONIX IV IV (08:39)
[2023-12-12] MEDS: VITAMIN B-12 1000 MCG PO (08:39)
[2023-12-12] MEDS: NSS (PRESERVATIVE FREE) IV (08:39)
--- NOTE | 2023-12-12 09:00 | PTCARENOTE ---
Patient appropriate and ready for discharge. IV Removed. Discharge instructions given and gone over with patient.
Patient picked up and taken home by .
--- NOTE | 2023-12-12 09:27 | CM ---
CM following re: discharge planning.
Reviewed pt's chart, met with pt and her yesterday and today.
Discharge order is noted. Both pt and her are aware, expressed their agreement with discharge. IMM reviewed yesterday.
No after care VN services needs identified at this time.
D/C plan: home no needs. to transport at discharge.
--- NOTE | 2023-12-12 14:35 | W.DCSUMMARY ---
Discharge Summary
Discharge Data
Date of Admission: 12/10/23
Date of Discharge: 12/12/23
-
Pending Results: No
Hospital Course
Principal Diagnosis:
Bright red blood per rectum (BRBPR)/gastrointestinal bleed, suspect diverticular in etiology.
Possible mild diverticulitis
Chronic Diagnoses:�
Essential Thrombocytosis- Stable.�
Hiatal Hernia / GERD�- Stable.�
Dyslipidemia�- Stable.�
Consultations:�
Gastroenterology
Procedures:�
None
Clinical course:�
This is a 73-year-old female, with past medical history as stated above, who presented with bright red blood per rectum.
Problem 1:
BRBPR / Lower GI Bleeding, suspect diverticular bleed.
This was associated with acute blood Loss anemia.
Her recent C scope noted diverticulosis and internal hemorrhoids.
Her CTA this admission was negative for active bleeding.
She received 1 unit PRBC transfusion while in the hospital (for hemoglobin at 7.5), and her hemoglobin on the day of discharge was at 9.8.
Her B12 level was noted to be low and she was started with B12 supplement.
She received Zosyn then Levaquin/Flagyl for the mild diverticulitis noted on her CT scan while in the hospital.
She can continue with oral Levaquin and Flagyl with probiotic outpatient.
As for the rest of her medical problems, they were stable during her hospital stay.
Discharge Plan
-
Patient Disposition: Home (Routine Discharge)
Discharge Diagnosis/Procedures: Bright red blood per rectum likely lower GI bleeding (suspect diverticular) with acute blood loss anemia; possible mild diverticulitis; low vitamin B12 level
Condition: Good
Diet: As tolerated and Low Residue
Activity: As tolerated
Driving Restrictions: Not until seen by your Dr
Blood Work: CBC and BMP with your PCP
Referrals:
Dionte Vargas MD [Family Provider] - in less than 1 week
Additional Discharge Medication Instructions: Continue short course antibiotics with Levaquin and Flagyl (with probiotics).
Continue vit B 12 supplement
Prescriptions:
New
cyanocobalamin (vitamin B-12) 1,000 mcg Tablet
1,000 mcg PO DAILY Qty: 30 0RF
levofloxacin 750 mg tablet
750 mg PO DAILY 4 Days Qty: 4 0RF
metronidazole 500 mg tablet
500 mg PO Q8H 4 Days Qty: 12 0RF
Probiotic 3 billion cell capsule
3,000 mmu cells PO DAILY Qty: 20 0RF
Continued
hydroxyurea [Hydrea] 500 mg Capsule
500 mg PO DAILY
aspirin 81 mg Tablet
81 mg PO HS
rosuvastatin [Crestor] 10 mg Tablet
10 mg PO HS
omeprazole magnesium [Prilosec OTC] 20 mg Tablet,Delayed Release (Dr/Ec)
20 mg PO DAILY
Discharge Orders:
Discharge Patient (As Directed); Ordered 12/12/23
Ordered By: Anastasia Liang
Discharge Date and Time
Discharge Date/Time: 12/12/23 09:58
== END 2023-12-12 09:58 | disposition home or self-care (01) | DRG 378 ==
LOC: ICU 05:25
PROVIDERS: ADMITTING PHYSICIAN Hospitalist; ATTENDING PHYSICIAN Internal Medicine; CONSULT PHYSICIAN Internal Medicine Gastroenterology; EMERGENCY PHYSICIAN Student in an Organized Health Care Education/Training Program; FAMILY PHYSICIAN Psychiatry & Neurology Neurology
PROC: 30233N1 Transfusion of Nonautologous Red Blood Cells into Peripheral Vein, Percutaneous Approach (ICD-10-PCS; 2023-12-10)
DX: K92.2 Gastrointestinal hemorrhage, unspecified (principal); D62 Acute posthemorrhagic anemia; D69.3 Immune thrombocytopenic purpura; D75.839 Thrombocytosis, unspecified; K57.91 Diverticulosis of intestine, part unspecified, without perforation or abscess with bleeding; D47.3 Essential (hemorrhagic) thrombocythemia; K44.9 Diaphragmatic hernia without obstruction or gangrene; K21.9 Gastro-esophageal reflux disease without esophagitis; E78.00 Pure hypercholesterolemia, unspecified; K64.8 Other hemorrhoids; D75.89 Other specified diseases of blood and blood-forming organs
CPT/HCPCS: 74174; 80048; 80053; 82607; 82728; 82746; 83540; 83550; 83690; 85014; 85018; 85025; 85027; 85610; 85730; 86850; 86900; 86901; 86920; 96365; 96366; 96376; 99284; P9016; Q9967